=== PATIENT | female | born 1955 | race Caucasian/White ===

== ENCOUNTER 2024-10-01 09:00 | Outpatient (RCR) | payer MEDICARE, SELFPAY | END 2024-10-01 23:59 | disposition home or self-care (01) | LOC: PT 09:00 | PROVIDERS: Visit Provider Internal Medicine | DX: R60.0 Localized edema (principal) | CPT/HCPCS: 97140; 97163 ==

== ENCOUNTER 2024-10-31 10:00 | Outpatient (RCR) | payer MEDICARE, SELFPAY | END 2024-10-31 23:59 | disposition home or self-care (01) | LOC: PT 10:00 | PROVIDERS: Visit Provider Internal Medicine | DX: R60.0 Localized edema (principal) | CPT/HCPCS: 97140; 97760 ==